=== PATIENT | male | born 1990 | race African-American/Black ===

== ENCOUNTER 2017-05-06 19:10 | Emergency (ER) | payer OTHER ==
[2017-05-06] MEDS ORDERED: LIDOCAINE 5% (700 MG) TRANSDERMAL ADH..PATCH TP ONE (19:59)
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
[2017-05-06] MEDS ORDERED: TRAMADOL HCL 50 MG TABLET PO ONE (21:30)
[2017-05-06 21:53] VITALS: BP 136/77
== END 2017-05-06 21:50 | disposition home or self-care (01) ==
LOC: ER 19:10
DX: S13.4XXA Sprain of ligaments of cervical spine, initial encounter (principal); S46.912A Strain of unspecified muscle, fascia and tendon at shoulder and upper arm level, left arm, initial encounter; S76.012A Strain of muscle, fascia and tendon of left hip, initial encounter; V89.2XXA Person injured in unspecified motor-vehicle accident, traffic, initial encounter
CPT/HCPCS: 99284